=== PATIENT | female | born 1980 | race Caucasian/White ===

== ENCOUNTER 2016-09-26 16:05 | Inpatient (IN) | payer OTHER ==
[2016-09-26 16:29] VITALS: BMI 29.5
--- NOTE | 2016-09-26 18:31 | HP ---
CIWA Score - CIWA Score Nausea/Vomitin-Mild Nausea/No Vomiting Muscle Tremors: 3 Anxiety: 4-Mod. Anxious/Guarded Agitation: 4-Moderately Restless Paroxysmal Sweats: 1-Minimal Palms Moist Orientation: 3-Disoriented Date>2 days Tacttile Disturbances: 0-None Auditory Disturbances: 0-None Visual Disturbances: 0-None Headache: 0-None Present CIWA-Ar Total Score: 16 Admission ROS S - HPI Chief Complaint: WITHDRAWAL SX Allergies/Adverse Reactions: Allergies Allergy/AdvReac Type Severity Reaction Status Date / Time No Known Allergies Allergy Verified 09/26/16 17:48 History of Present Illness: 36 YEARS OLD FEMALE WITH LONG HISTORY OF XANAX NICOTINE DEPENDENCE, HAS CONSTIPATION, ANEMIA, ASTHMA SEIZURE AND DEPRESSION IS ADMITTED TO DETOX Exam Limitations: No Limitations - Ebola screening Have you traveled outside of the country in the last 21 days: No (N) Have you had contact with anyone from an Ebola affected area: No Have you been sick,other than usual withdrawal symptoms: No Do you have a fever: No - Review of Systems Constitutional: Chills, Changes in sleep, Weight Stable EENT: reports: No Symptoms Reported Respiratory: reports: No Symptoms reported Cardiac: reports: No Symptoms Reported GI: reports: Nausea, Poor Fluid Intake, Indigestion, Abdominal cramping : reports: No Symptoms Reported Musculoskeletal: reports: Back Pain, Joint Pain, Muscle Pain Integumentary: reports: No Symptoms Reported Neuro: reports: Seizure (FIRST SEIZURE 2010 NO TREATMENT), Tremors Endocrine: reports: No Symptoms Reported Hematology: reports: No Symptoms Reported Psychiatric: reports: Judgement Intact, Anxious, Depressed Other Systems: Reviewed and Negative Patient History - Patient Medical History Hx Anemia: No Hx Asthma: Yes (Pt is on MDI) Hx Chronic Obstructive Pulmonary Disease (COPD): No Hx Cancer: No Hx Cardiac Disorders: No Hx Congestive Heart Failure: No Hx Hypertension: Yes Hx Hypercholesterolemia: Yes (by history last dose 3 years ago) Hx Pacemaker: No HX Cerebrovascular Accident: No Hx Seizures: Yes (xanax related last in 2010.) Hx Dementia: No Hx Diabetes: No Hx Gastrointestinal Disorders: No Hx Liver Disease: No Hx Genitourinary Disorders: No Hx Sexually Transmitted Disorders: No Hx Renal Disease (ESRD): No Hx Thyroid Disease: No Hx Human Immunodeficiency Virus (HIV): No Hx Hepatitis C: No Hx Depression: Yes Hx Suicide Attempt: Yes (OVER DOSE PILLS "LONG TIME AGO") Hx Bipolar Disorder: No Hx Schizophrenia: No - Patient Surgical History Past Surgical History: Yes Hx Neurologic Surgery: No Hx Cataract Extraction: No Hx Cardiac Surgery: No Hx Lung Surgery: No Hx Breast Surgery: Yes (2012 right breast abscess) Hx Breast Biopsy: No Hx Abdominal Surgery: No Hx Appendectomy: No Hx Cholecystectomy: No Hx Genitourinary Surgery: No Hx Section: Yes (2003) Hx Orthopedic Surgery: No Hx Hysterectomy: No Anesthesia Reaction: No - PPD History Previous Implant?: Yes Documented Results: Negative w/proof Implanted On Prior R Admission?: Yes Date: 04/18/16 Results: 0 mm PPD to be Administered?: No - Reproductive History Patient is a Female of Child Bearing Age (11 -55 yrs old): Yes Last Menstrual Period: 08/08/16 Patient : No - Smoking Cessation Smoking history: Current every day smoker Have you smoked in the past 12 months: Yes Aproximately how many cigarettes per day: 10 Cigars Per Day: 0 Hx Chewing Tobacco Use: No Initiated information on smoking cessation: Yes 'Breaking Loose' booklet given: 09/26/16 - Substance & Tx. History Hx Alcohol Use: No Hx Substance Use: Yes Substance Use Type: Cocaine, Tranquilizers Hx Substance Use Treatment: Yes - Substances Abused Cocaine Route: Smoking Frequency: Daily Amount used: $50 Age of first use: 21 Date of Last Use: 09/25/16 XANAX OR KLONOPIN Route: Oral Frequency: Daily Amount used: 4-6MG Age of first use: 31 Date of Last Use: 09/26/16 Family Disease History - Family Disease History Family Disease History: Diabetes: Grandparent (HTN), Heart Disease: Grandparent , Father (OH X 2,ALCOHOL), Other: Father Admission Physical Exam BHS - Vital Signs Vital Signs: Vital Signs - 24 hr 09/26/16 16:27 Temperature 95.4 F L Pulse Rate 51 L Respiratory 18 Rate Blood Pressure 127/73 - Physical General Appearance: Yes: Appropriately Dressed, Mild Distress, Tremorous, Irritable, Sweating, Anxious HEENTM: Yes: Hearing grossly Normal, Normal ENT Inspection, Normocephalic, Normal Voice Respiratory: Yes: Chest Non-Tender, No Respiratory Distress, No Accessory Muscle Use, Wheezing, Expiration Neck: Yes: Supple, Trachea in good position Breast: Yes: Breasts Symetrical Cardiology: Yes: Regular Rhythm, Regular Rate, S1, S2 Genitourinary: Yes: Within Normal Limits Back: Yes: Normal Inspection Musculoskeletal: Yes: full range of Motion, Gait Steady, Back pain Extremities: Yes: Normal Range of Motion, Non-Tender, Tremors Neurological: Yes: Alert, Motor Strength 5/5, Normal Response, Depressed Affect Integumentary: Yes: Warm Lymphatic: Yes: Within Normal Limits - Diagnostic (1) Anemia Current Visit: Yes Status: Chronic Qualifiers: Anemia type: iron deficiency Iron deficiency anemia type: inadequate dietary iron intake Qualified Code(s): D50.8 - Other iron deficiency anemias Comment: lab pending (2) Asthma Current Visit: Yes Status: Acute Qualifiers: Asthma severity: mild intermittent Asthma complication type: uncomplicated Qualified Code(s): J45.20 - Mild intermittent asthma, uncomplicated (3) Methadone maintenance therapy patient Current Visit: Yes Status: Chronic Comment: 120 mg po daily verification pending (4) Sedative, hypnotic or anxiolytic dependence with withdrawal, uncomplicated Current Visit: Yes Status: Acute (5) Nicotine dependence Current Visit: Yes Status: Acute Qualifiers: Nicotine product type: cigarettes Substance use status: uncomplicated Qualified Code(s): F17.210 - Nicotine dependence, cigarettes, uncomplicated (6) Constipation by delayed colonic transit Current Visit: Yes Status: Acute Comment: COLACE + LACTULOSE (7) Depression with anxiety Current Visit: Yes Status: Suspected Comment: PAXIL Cleared for Admission [facility] - Detox or Rehab [facility] Level of Care: Medically Managed Detox Regimen/Protocol: Valium [facility] Breath Alcohol Content Breath Alcohol Content: 0 Urine Pregancy Test - Result Urine Test Results: Negative- NO Line Present Urine Drug Screen - Results Drug Screen Negative: No Urine Drug Screen Results: JOHNATHAN-Cocaine, BZO-Benzodiazepines, MTD-Methadone
[2016-09-26] MEDS ORDERED: diazePAM 5 MG TABLET PO ONE (18:42)
[2016-09-26] MEDS ORDERED: MAG HYDROX/AL HYDROX/SIMETH 30 ML UNIT-DOSE CUP PO PRN (18:42)
[2016-09-26] MEDS ORDERED: IBUPROFEN 400 MG TABLET (FP) PO PRN (18:42)
[2016-09-26] MEDS ORDERED: LOPERAMIDE HCL 2 MG CAPSULE PO PRN (18:42)
[2016-09-26] MEDS ORDERED: MAGNESIUM HYDROX 2400MG/30ML ORAL SUSPENSION 30 ML CUP PO PRN (18:42)
[2016-09-26] MEDS ORDERED: ACETAMINOPHEN 325 MG TABLET (FP) PO PRN (18:42)
[2016-09-26] MEDS ORDERED: P-EPHED 60MG/TRIPROLIDI 2.5MG TABLET PO PRN (18:42)
[2016-09-26] MEDS ORDERED: MAGNESIUM CITRATE 300 ML BOTTLE PO PRN (18:42)
[2016-09-26] MEDS ORDERED: guaiFENesin/D-METHORPHAN HB 10 ML UNIT-DOSE CUPS PO PRN (18:42)
[2016-09-26] MEDS ORDERED: MENTHOL/PHENOL 1 EACH UD MM PRN (18:42)
[2016-09-26] MEDS ORDERED: ALBUTEROL SO4 6.7 GM HFA INHALER IH PRN (18:46)
[2016-09-26] MEDS ORDERED: ALBUTEROL SO4 2.5/IPRATROPIUM 0.5 INH SOL 3 ML VIAL.NEB. NEB PRN (18:46)
[2016-09-26] MEDS ORDERED: diphenhydrAMINE HCL 50 MG CAPSULE PO PRN (22:00)
[2016-09-26] MEDS: diazePAM 5 MG TABLET PO SCH (22:39)
[2016-09-26] MEDS: CYCLOBENZAPRINE HCL 10 MG TABLET (FP) PO PRN (22:39)
[2016-09-26] MEDS: THIAMINE HCL 100 MG TABLET (FP) PO SCH (22:39)
[2016-09-26] MEDS: cloNIDine HCL 0.1 MG TABLET PO PRN (22:40)
[2016-09-26 23:11] LABS: URINE APPEARANCE SLCLOUDY; URINE BILIRUBIN NEGATIVE (NEGATIVE); URINE BLOOD NEGATIVE (NEGATIVE); URINE COLOR LTYELLOW; URINE GLUCOSE (UA) NEGATIVE (NEGATIVE); URINE KETONE NEGATIVE (NEGATIVE); URINE LEUK ESTERASE NEGATIVE (NEGATIVE); URINE NITRITE NEGATIVE (NEGATIVE); URINE PROTEIN NEGATIVE (NEGATIVE); URINE UROBILINOGEN NEGATIVE E.U./dl (0.2-1.0)
[2016-09-27] MEDS: diazePAM 5 MG TABLET PO SCH ×3 (05:30→22:18)
--- NOTE | 2016-09-27 09:27 | CONSULT ---
[facility] Psychiatric Consult - Data Date of interview: 09/27/16 Admission source: [facility] Identifying data: Readmission to [facility] for this 36 y/o female seeking detox treatment on for cocaine (crack) and benzodiazepine dependence.Patient is single,a mother of one,domiciled,unemployed and supported on Public Assistance. Substance Abuse History: - Smoking Cessation. Smoking history: Current every day smoker. Have you smoked in the past 12 months: Yes. Aproximately how many cigarettes per day: 10. Cigars Per Day: 0. Hx Chewing Tobacco Use: No. Initiated information on smoking cessation: Yes. 'Breaking Loose' booklet given : 09/26/16. - Substance & Tx. History. Hx Alcohol Use: No. Hx Substance Use: Yes. Substance Use Type: Cocaine, Tranquilizers. Hx Substance Use Treatment: Yes. - Substances Abused. Cocaine. Route: Smoking. Frequency: Daily. Amount used: $50. Age of first use: 21. Date of Last Use: 09/25/16. XANAX OR KLONOPIN. Route: Oral. Frequency: Daily. Amount used: 4-6MG. Age of first use: 31. Date of Last Use: 09/26/16 Medical History: Significant for a history of anemia,bronchial asthma, hypertension,hypercholesterolemia,GERD and withdrawal-related seizures. Psychiatric History: Onset of psychiatric issues :age [age] (behavioral problems ).Initial diagnosis was ADHD.Placed on psychostimulants but no compliant over the years.Patient denies history of psychiatric hospitalizations.Further diagnosed with MDD,Anxiety Disorder and Bipolar Disorder.MS Herndon reports multiple trials of various antidepressants and mood stabilizers (lithium, depakote,seroquel).Currently,Ms Herndon gets outpatient psychiatric services at the [facility] in [facility].Maintenance medications :paxil 40 mg /day + gabapentin 800 mg po tid + zyprexa 7.5 mg/hs.No mention of strattera ( not found in search of Pharmacy Claims).She indicates that she last took her medications just prior to this [facility] visit.Noted report of one suicide attempt, five years ago,via overdose with medications.Mild insomnia is endorsed by patient. Physical/Sexual Abuse/Trauma History: Patient denies. Additional Comment: Urine Drug Screen Results: JOHNATHAN-Cocaine, BZO-Benzodiazepines , MTD-Methadone.Noted. Mental Status Exam - Mental Status Exam Alert and Oriented to: Time, Place, Person Cognitive Function: Good Patient Appearance: Unkempt, Disheveled Mood: Nervous, Withdrawn Affect: Mood Congruent Patient Behavior: Sedated, Fatigued, Appropriate, Cooperative Speech Pattern: Clear Voice Loudness: Normal Thought Process: Goal Oriented Thought Disorder: Not Present Hallucinations: Denies Suicidal Ideation: Denies Homicidal Ideation: Denies Insight/Judgement: Poor Sleep: Poorly, Difficulty falling asleep Appetite: Good Muscle strength/Tone: Normal Gait/Station: Normal Psychiatric Findings - Problem List ([place] 1, 2,3) (1) Sedative, hypnotic or anxiolytic dependence with withdrawal, uncomplicated Current Visit: Yes Status: Acute (2) Cocaine dependence, uncomplicated Current Visit: Yes Status: Acute (3) Opioid dependence on agonist therapy Current Visit: Yes Status: Acute (4) Nicotine dependence Current Visit: Yes Status: Acute Qualifiers: Nicotine product type: cigarettes Substance use status: uncomplicated Qualified Code(s): F17.210 - Nicotine dependence, cigarettes, uncomplicated (5) Substance induced mood disorder Current Visit: Yes Status: Suspected (6) Bipolar disorder Current Visit: Yes Status: Chronic Comment: By history. (7) ADHD (attention deficit hyperactivity disorder) Current Visit: No Status: Acute Comment: By history. (8) Anemia Current Visit: Yes Status: Chronic Qualifiers: Anemia type: iron deficiency Iron deficiency anemia type: inadequate dietary iron intake Qualified Code(s): D50.8 - Other iron deficiency anemias Comment: lab pending (9) Asthma Current Visit: Yes Status: Chronic Qualifiers: Asthma severity: mild intermittent Asthma complication type: uncomplicated Qualified Code(s): J45.20 - Mild intermittent asthma, uncomplicated (10) Chronic lower back pain Current Visit: Yes Status: Chronic Qualifiers: Back pain laterality: unspecified Sciatica presence: without sciatica Qualified Code(s): M54.5 - Low back pain; G89.29 - Other chronic pain Comment: neurontin (11) GERD (gastroesophageal reflux disease) Current Visit: Yes Status: Chronic Qualifiers: Esophagitis presence: without esophagitis Qualified Code(s): K21.9 - Gastro-esophageal reflux disease without esophagitis (12) Insomnia Current Visit: Yes Status: Chronic - Initial Treatment Plan Initial Treatment Plan: Psychoeducation.Detoxification.Medications :paxil 40 mg po daily + gabapentin 800 mg po tid + zyprexa 7.5 mg po hs.Side effects/ benefits discussed with patient.Previous records are reviewed.Medications are verified/confirmed via review of pharmacy claims (filled scripts of 09/05/[address] Snowden @ [facility]).Insomnia is addressed with benadryl prn at bedtime.Observation.Patient agrees with this careplan.
[2016-09-27] MEDS ORDERED: METHADONE HCL 40 MG DISPERSABLE TABLET PO ONE (09:45)
[2016-09-27] MEDS ORDERED: ERGOCALCIFEROL (VITAMIN D2) 50,000 UNIT CAPSULE (FP) PO SCH (10:00)
[2016-09-27 10:32] LABS: MCH 32.2 pg (25.7-33.7); MCHC 35.6 g/dl (32.0-36.0); MEAN CELL VOLUME 90.3 fl (80-96); MEAN PLT VOLUME 10.1 fl (7.5-11.1); PLATELET COUNT 194 K/MM3 (134-434); RDW 13.3 % (11.6-15.6); WHITE BLOOD COUNT 8.9 K/mm3 (4.0-10.0)
[2016-09-27 10:55] LABS: ALBUMIN 3.2 g/dl (3.4-5.0); ALK PHOS 115 U/L (45-117); ANION GAP 7 (8-16); BILIRUBIN,TOTAL 0.6 mg/dL (0.2-1.0); CALCIUM 7.9 mg/dL (8.5-10.1); CO2 25 mmol/L (21-32); CREATININE 0.7 mg/dL (0.55-1.02); GLUCOSE,RANDOM 132 mg/dL (74-106)
[2016-09-27 11:20] LABS: SGOT/AST 22 U/L (15-37); TOT PROT 6.4 g/dl (6.4-8.2)
[2016-09-27] MEDS: NICOTINE 14 MG/24 HOURS TOPICAL PATCH TD SCH (11:25)
[2016-09-27] MEDS: PRENATAL VITAMINS W/ FOLIC ACID TABLET (FP) PO SCH (11:25)
[2016-09-27] MEDS: CYCLOBENZAPRINE HCL 10 MG TABLET (FP) PO PRN ×2 (11:27→20:34)
[2016-09-27] MEDS: diazePAM 5 MG TABLET PO PRN ×2 (11:28→19:30)
[2016-09-27] MEDS: cloNIDine HCL 0.1 MG TABLET PO PRN ×2 (11:28→20:34)
[2016-09-27] MEDS: PARoxetine HCL 20 MG TABLET (FP) PO SCH (12:12)
[2016-09-27] MEDS: GABAPENTIN 400 MG CAPSULE (FP) PO SCH ×2 (13:41→22:18)
[2016-09-27] MEDS: DOCUSATE SODIUM 100 MG CAPSULE (FP) PO PRN (13:42)
--- NOTE | 2016-09-27 13:54 | PN ---
S CIWA - CIWA Score Nausea/Vomitin Muscle Tremors: 3 Anxiety: 3 Agitation: 2 Paroxysmal Sweats: 1-Minimal Palms Moist Orientation: 0-Oriented Tacttile Disturbances: 1-Very Mild Itch/Numbness Auditory Disturbances: 1-Very Mild Visual Disturbances: 1-Very Mild Sensitivity Headache: 2-Mild CIWA-Ar Total Score: 17 BHS Progress Note (SOAP) Subjective: alert,irritable,anxious,interrupted sleep,tremor,pain in the body Objective: 09/27/16 13:51 Vital Signs Temperature 97.7 F 09/27/16 10:00 Pulse Rate 66 09/27/16 10:00 Respiratory Rate 18 09/27/16 10:00 Blood Pressure 104/58 09/27/16 10:00 O2 Sat by Pulse Oximetry (%) ekg sinus bradycardia 59/min no chest pain,no sob,no dizziness Laboratory Last Values WBC 8.9 K/mm3 (4.0-10.0) D 09/27/16 07:50 RBC 4.05 M/mm3 (3.60-5.2) 09/27/16 07:50 Hgb 13.0 GM/dL (10.7-15.3) D 09/27/16 07:50 Hct 36.6 % (32.4-45.2) 09/27/16 07:50 MCV 90.3 fl (80-96) 09/27/16 07:50 MCHC 35.6 g/dl (32.0-36.0) 09/27/16 07:50 RDW 13.3 % (11.6-15.6) D 09/27/16 07:50 Plt Count 194 K/MM3 (134-434) 09/27/16 07:50 MPV 10.1 fl (7.5-11.1) 09/27/16 07:50 Sodium 140 mmol/L (136-145) 09/27/16 07:50 Potassium 4.2 mmol/L (3.5-5.1) 09/27/16 07:50 Chloride 108 mmol/L (98-107) H 09/27/16 07:50 Carbon Dioxide 25 mmol/L (21-32) 09/27/16 07:50 Anion Gap 7 (8-16) L 09/27/16 07:50 BUN 5 mg/dL (7-18) L D 09/27/16 07:50 Creatinine 0.7 mg/dL (0.55-1.02) 09/27/16 07:50 Creat Clearance w eGFR > 60 (>60) 09/27/16 07:50 Random Glucose 132 mg/dL (74-106) H D 09/27/16 07:50 Calcium 7.9 mg/dL (8.5-10.1) L 09/27/16 07:50 Total Bilirubin 0.6 mg/dL (0.2-1.0) D 09/27/16 07:50 AST 22 U/L (15-37) 09/27/16 07:50 ALT Y 09/27/16 07:50 Alkaline Phosphatase 115 U/L (45-117) D 09/27/16 07:50 Total Protein 6.4 g/dl (6.4-8.2) 09/27/16 07:50 Albumin 3.2 g/dl (3.4-5.0) L 09/27/16 07:50 Urine Color Ltyellow 09/26/16 19:54 Urine Appearance Slcloudy 09/26/16 19:54 Urine pH 7.0 (5.0-8.0) 09/26/16 19:54 Ur Specific [place] 1.006 (1.001-1.035) 09/26/16 19:54 Urine Protein Negative (NEGATIVE) 09/26/16 19:54 Urine Glucose (UA) Negative (NEGATIVE) 09/26/16 19:54 Urine Ketones Negative (NEGATIVE) 09/26/16 19:54 Urine Blood Negative (NEGATIVE) 09/26/16 19:54 Urine Nitrite Negative (NEGATIVE) 09/26/16 19:54 Urine Bilirubin Negative (NEGATIVE) 09/26/16 19:54 Urine Urobilinogen Negative E.U./dl (0.2-1.0) 09/26/16 19:54 Ur Leukocyte Esterase Negative (NEGATIVE) 09/26/16 19:54 RPR Titer Nonreactive (NONREACTIVE) 09/27/16 07:50 Assessment: 09/27/16 13:53 withdrawal symptom Plan: continue detox,repeat cmp in am,initial glucose is 132
[2016-09-27] MEDS: LACTULOSE 20 GM/30 ML UDC (FOR ORAL USE ONLY) PO PRN (13:59)
[2016-09-27] MEDS: NICOTINE POLACRILEX 2 MG GUM BUC PRN ×2 (19:24→22:19)
[2016-09-27] MEDS: OLANZapine 7.5 MG TABLET PO SCH (22:18)
[2016-09-27] MEDS: THIAMINE HCL 100 MG TABLET (FP) PO SCH (22:18)
[2016-09-28] MEDS: GABAPENTIN 400 MG CAPSULE (FP) PO SCH ×3 (05:54→22:30)
[2016-09-28] MEDS: METHADONE HCL 40 MG DISPERSABLE TABLET PO SCH (05:56)
[2016-09-28] MEDS: cloNIDine HCL 0.1 MG TABLET PO PRN ×2 (06:00→20:41)
[2016-09-28] MEDS: CYCLOBENZAPRINE HCL 10 MG TABLET (FP) PO PRN ×2 (06:00→20:41)
[2016-09-28] MEDS: diazePAM 5 MG TABLET PO PRN ×2 (07:27→16:21)
[2016-09-28] MEDS: NICOTINE POLACRILEX 2 MG GUM BUC PRN (07:34)
[2016-09-28] MEDS: LACTULOSE 20 GM/30 ML UDC (FOR ORAL USE ONLY) PO PRN (10:56)
[2016-09-28] MEDS: NICOTINE 14 MG/24 HOURS TOPICAL PATCH TD SCH (10:57)
[2016-09-28] MEDS: PARoxetine HCL 20 MG TABLET (FP) PO SCH (10:57)
[2016-09-28] MEDS: PRENATAL VITAMINS W/ FOLIC ACID TABLET (FP) PO SCH (10:57)
[2016-09-28] MEDS: diazePAM 5 MG TABLET PO SCH ×2 (10:57→22:31)
[2016-09-28] MEDS: DOCUSATE SODIUM 100 MG CAPSULE (FP) PO PRN (10:57)
--- NOTE | 2016-09-28 11:38 | PN ---
[facility] CIWA - CIWA Score Nausea/Vomitin-No Nausea/No Vomiting Muscle Tremors: 3 Anxiety: 4-Mod. Anxious/Guarded Agitation: 4-Moderately Restless Paroxysmal Sweats: 3 Orientation: 0-Oriented Tacttile Disturbances: 0-None Auditory Disturbances: 0-None Visual Disturbances: 0-None Headache: 0-None Present CIWA-Ar Total Score: 14 BHS Progress Note (SOAP) Subjective: ANXIETY,TREMORS,RESTLESS,INTERRUPTED SLEEP,SWEATING. Objective: 09/28/16 11:37 Vital Signs - 8 hr 09/28/16 09/28/16 06:00 10:00 Temperature 98.2 F 96.9 F L Pulse Rate 65 67 Respiratory 18 16 Rate Blood Pressure 117/62 106/66 Laboratory Last Values WBC 8.9 K/mm3 (4.0-10.0) D 09/27/16 07:50 RBC 4.05 M/mm3 (3.60-5.2) 09/27/16 07:50 Hgb 13.0 GM/dL (10.7-15.3) D 09/27/16 07:50 Hct 36.6 % (32.4-45.2) 09/27/16 07:50 MCV 90.3 fl (80-96) 09/27/16 07:50 MCHC 35.6 g/dl (32.0-36.0) 09/27/16 07:50 RDW 13.3 % (11.6-15.6) D 09/27/16 07:50 Plt Count 194 K/MM3 (134-434) 09/27/16 07:50 MPV 10.1 fl (7.5-11.1) 09/27/16 07:50 Sodium 140 mmol/L (136-145) 09/27/16 07:50 Potassium 4.2 mmol/L (3.5-5.1) 09/27/16 07:50 Chloride 108 mmol/L (98-107) H 09/27/16 07:50 Carbon Dioxide 25 mmol/L (21-32) 09/27/16 07:50 Anion Gap 7 (8-16) L 09/27/16 07:50 BUN 5 mg/dL (7-18) L D 09/27/16 07:50 Creatinine 0.7 mg/dL (0.55-1.02) 09/27/16 07:50 Creat Clearance w eGFR > 60 (>60) 09/27/16 07:50 Random Glucose 132 mg/dL (74-106) H D 09/27/16 07:50 Calcium 7.9 mg/dL (8.5-10.1) L 09/27/16 07:50 Total Bilirubin 0.6 mg/dL (0.2-1.0) D 09/27/16 07:50 AST 22 U/L (15-37) 09/27/16 07:50 ALT Y 09/27/16 07:50 Alkaline Phosphatase 115 U/L (45-117) D 09/27/16 07:50 Total Protein 6.4 g/dl (6.4-8.2) 09/27/16 07:50 Albumin 3.2 g/dl (3.4-5.0) L 09/27/16 07:50 Urine Color Ltyellow 09/26/16 19:54 Urine Appearance Slcloudy 09/26/16 19:54 Urine pH 7.0 (5.0-8.0) 09/26/16 19:54 Ur Specific [place] 1.006 (1.001-1.035) 09/26/16 19:54 Urine Protein Negative (NEGATIVE) 09/26/16 19:54 Urine Glucose (UA) Negative (NEGATIVE) 09/26/16 19:54 Urine Ketones Negative (NEGATIVE) 09/26/16 19:54 Urine Blood Negative (NEGATIVE) 09/26/16 19:54 Urine Nitrite Negative (NEGATIVE) 09/26/16 19:54 Urine Bilirubin Negative (NEGATIVE) 09/26/16 19:54 Urine Urobilinogen Negative E.U./dl (0.2-1.0) 09/26/16 19:54 Ur Leukocyte Esterase Negative (NEGATIVE) 09/26/16 19:54 RPR Titer Nonreactive (NONREACTIVE) 09/27/16 07:50 LABS NOTED Assessment: 09/28/16 11:38 WITHDRAWAL SX. Plan: CONTINUE DETOX
[2016-09-28] MEDS: THIAMINE HCL 100 MG TABLET (FP) PO SCH (22:31)
[2016-09-28] MEDS: OLANZapine 7.5 MG TABLET PO SCH (22:31)
[2016-09-29] MEDS: diazePAM 5 MG TABLET PO PRN ×3 (02:34→12:52)
[2016-09-29] MEDS: GABAPENTIN 400 MG CAPSULE (FP) PO SCH ×3 (05:50→22:27)
[2016-09-29] MEDS: METHADONE HCL 40 MG DISPERSABLE TABLET PO SCH (05:51)
[2016-09-29] MEDS: cloNIDine HCL 0.1 MG TABLET PO PRN ×3 (05:55→22:32)
[2016-09-29] MEDS: CYCLOBENZAPRINE HCL 10 MG TABLET (FP) PO PRN ×3 (06:55→22:27)
--- NOTE | 2016-09-29 11:42 | PN ---
S Progress Note (SOAP) Subjective: ALERT,IRRITABLE,ANXIOUS,INTERRUPTED SLEEP, Objective: 09/29/16 11:41 Vital Signs Temperature 98.1 F 09/29/16 10:24 Pulse Rate 75 09/29/16 10:24 Respiratory Rate 20 09/29/16 10:24 Blood Pressure 108/65 09/29/16 10:24 O2 Sat by Pulse Oximetry (%) Assessment: 09/29/16 11:41 WITHDRAWAL SYMPTOM Plan: CONTINUE DETOX,DISCHARGE IN AM
[2016-09-29] MEDS: NICOTINE 14 MG/24 HOURS TOPICAL PATCH TD SCH (12:16)
[2016-09-29] MEDS: PARoxetine HCL 20 MG TABLET (FP) PO SCH (12:16)
[2016-09-29] MEDS: PRENATAL VITAMINS W/ FOLIC ACID TABLET (FP) PO SCH (12:16)
[2016-09-29] MEDS: diazePAM 5 MG TABLET PO SCH ×2 (12:17→22:27)
[2016-09-29] MEDS ORDERED: ALBUTEROL SO4 6.7 GM HFA INHALER IH ONE (20:04)
[2016-09-29] MEDS: DOCUSATE SODIUM 100 MG CAPSULE (FP) PO PRN (22:26)
[2016-09-29] MEDS: THIAMINE HCL 100 MG TABLET (FP) PO SCH (22:27)
[2016-09-29] MEDS: OLANZapine 7.5 MG TABLET PO SCH (22:28)
[2016-09-30] MEDS: METHADONE HCL 40 MG DISPERSABLE TABLET PO SCH (07:36)
[2016-09-30] MEDS: GABAPENTIN 400 MG CAPSULE (FP) PO SCH (07:38)
[2016-09-30] MEDS: NICOTINE POLACRILEX 2 MG GUM BUC PRN (08:54)
--- NOTE | 2016-09-30 08:59 | DS ---
[facility] Detox Discharge Summary Admission Date: 09/26/16 Discharge Date: 09/30/16 - History Present History: Cocaine Dependence, Opioid Dependence, Sedative Dependence, MMTP - Physical Exam Results Vital Signs: Vital Signs Temperature 97.7 F 09/30/16 06:56 Pulse Rate 72 09/30/16 06:56 Respiratory Rate 18 09/30/16 06:56 Blood Pressure 112/76 09/30/16 06:56 O2 Sat by Pulse Oximetry (%) - Treatment Hospital Course: Detox Protocol Followed, Detoxed Safely, Responded well, Discharged Condition Good, Rehab Referral Accepted - Medication Discharge Medications: Ambulatory Orders Albuterol Sulfate Inhaler - [Ventolin HFA Inhaler -] 2 puff IH Q4H PRN #1 inhaler 07/19/16 Ferrous Sulfate [Feosol] 325 mg PO BID 07/19/16 Gabapentin [Neurontin -] 800 mg PO TID #120 capsule 08/07/16 Olanzapine [Zyprexa -] 7.5 mg PO HS #30 tablet 08/07/16 Paroxetine HCl [Paxil -] 40 mg PO DAILY 09/26/16 - Diagnosis (1) Cocaine dependence, uncomplicated Current Visit: Yes Status: Chronic (2) Constipation by delayed colonic transit Current Visit: Yes Status: Chronic (3) Nicotine dependence Current Visit: Yes Status: Chronic Qualifiers: Nicotine product type: cigarettes Substance use status: uncomplicated Qualified Code(s): F17.210 - Nicotine dependence, cigarettes, uncomplicated (4) Opioid dependence on agonist therapy Current Visit: Yes Status: Chronic (5) Sedative, hypnotic or anxiolytic dependence with withdrawal, uncomplicated Current Visit: Yes Status: Chronic (6) Anemia Current Visit: Yes Status: Chronic Qualifiers: Anemia type: iron deficiency Iron deficiency anemia type: inadequate dietary iron intake Qualified Code(s): D50.8 - Other iron deficiency anemias (7) Asthma Current Visit: Yes Status: Chronic Qualifiers: Asthma severity: mild intermittent Asthma complication type: uncomplicated Qualified Code(s): J45.20 - Mild intermittent asthma, uncomplicated (8) Bipolar disorder Current Visit: Yes Status: Chronic (9) Chronic lower back pain Current Visit: Yes Status: Chronic Qualifiers: Back pain laterality: unspecified Sciatica presence: without sciatica Qualified Code(s): M54.5 - Low back pain; G89.29 - Other chronic pain (10) GERD (gastroesophageal reflux disease) Current Visit: Yes Status: Chronic Qualifiers: Esophagitis presence: without esophagitis Qualified Code(s): K21.9 - Gastro-esophageal reflux disease without esophagitis (11) Insomnia Current Visit: Yes Status: Chronic (12) Methadone maintenance therapy patient Current Visit: Yes Status: Chronic (13) Depression with anxiety Current Visit: Yes Status: Suspected (14) Substance induced mood disorder Current Visit: Yes Status: Suspected (15) ADHD (attention deficit hyperactivity disorder) Current Visit: No Status: Acute (16) Alcohol dependence Current Visit: Yes Status: Chronic Qualifiers: Substance use status: uncomplicated Qualified Code(s): F10.20 - Alcohol dependence, uncomplicated (17) Anxiolytic dependence Current Visit: No Status: Chronic (18) Bipolar 1 disorder Current Visit: No Status: Chronic (19) Depression (emotion) Current Visit: No Status: Chronic Qualifiers: Depression Type: dysthymia Qualified Code(s): F34.1 - Dysthymic disorder - AMA Did Patient Leave Against Medical Advice: No
[2016-09-30] MEDS ORDERED: diazePAM 5 MG TABLET PO SCH (10:00)
[2016-09-30] MEDS: cloNIDine HCL 0.1 MG TABLET PO PRN (10:08)
[2016-09-30] MEDS: DOCUSATE SODIUM 100 MG CAPSULE (FP) PO PRN (10:08)
[2016-09-30] MEDS: NICOTINE 14 MG/24 HOURS TOPICAL PATCH TD SCH (10:08)
[2016-09-30] MEDS: PARoxetine HCL 20 MG TABLET (FP) PO SCH (10:08)
[2016-09-30] MEDS: PRENATAL VITAMINS W/ FOLIC ACID TABLET (FP) PO SCH (10:08)
[2016-09-30] MEDS: CYCLOBENZAPRINE HCL 10 MG TABLET (FP) PO PRN (10:08)
[2016-09-30 10:38] VITALS: BP 101/60; PULSE 88; TEMP 97.2
== END 2016-09-30 10:16 | disposition home or self-care (01) | DRG 773 ==
LOC: YASAS 16:05 → Y6N 19:18
PROVIDERS: ADMIT Internal Medicine Addiction Medicine; ATTEND Internal Medicine Addiction Medicine
PROC: HZ2ZZZZ Detoxification Services for Substance Abuse Treatment (ICD-10-PCS; principal; 2016-09-26)
DX: F13.230 Sedative, hypnotic or anxiolytic dependence with withdrawal, uncomplicated (principal); F11.23 Opioid dependence with withdrawal; F14.20 Cocaine dependence, uncomplicated; F17.210 Nicotine dependence, cigarettes, uncomplicated; F19.24 Other psychoactive substance dependence with psychoactive substance-induced mood disorder; F34.1 Dysthymic disorder; F90.9 Attention-deficit hyperactivity disorder, unspecified type; F31.9 Bipolar disorder, unspecified; F41.8 Other specified anxiety disorders; K59.01 Slow transit constipation; D50.8 Other iron deficiency anemias; J45.20 Mild intermittent asthma, uncomplicated; M54.5 Low back pain; G89.29 Other chronic pain; K21.9 Gastro-esophageal reflux disease without esophagitis; G47.00 Insomnia, unspecified; R00.1 Bradycardia, unspecified; I10 Essential (primary) hypertension; Z86.69 Personal history of other diseases of the nervous system and sense organs; Z86.79 Personal history of other diseases of the circulatory system; Z91.5 Personal history of self-harm
CPT/HCPCS: 36415; 80053; 81003; 85027; 86593; 93005; 93010

== ENCOUNTER 2022-05-11 12:33 | Inpatient (IN) | payer OTHER ==
[2022-05-11 14:42] VITALS: BMI 20.9
[2022-05-11] MEDS ORDERED: MAG HYDROX/AL HYDROX/SIMETH 30 ML UNIT-DOSE CUP PO PRN (16:32)
[2022-05-11] MEDS ORDERED: BENZOCAINE/MENTHOL (CHLORASEPTIC ) LOZENGE MM PRN (16:32)
[2022-05-11] MEDS ORDERED: ONDANSETRON *ODT* 4 MG TABLET SL PRN (16:32)
[2022-05-11] MEDS ORDERED: NICOTINE 10 MG CARTRIDGE (INHALER) IH PRN (16:32)
[2022-05-11] MEDS ORDERED: ACETAMINOPHEN 325 MG TABLET (FP) PO PRN ×2 (16:32)
[2022-05-11] MEDS ORDERED: DICYCLOMINE HCL 10 MG CAPSULE PO PRN (16:32)
[2022-05-11] MEDS ORDERED: IBUPROFEN 600 MG TABLET (FP) PO PRN (16:32)
[2022-05-11] MEDS ORDERED: MAGNESIUM CITRATE 300 ML BOTTLE PO PRN (16:32)
[2022-05-11] MEDS ORDERED: NALOXONE HCL (KLOXXADO) 8 MG SPRAY NS PRN (16:32)
[2022-05-11] MEDS ORDERED: METHOCARBAMOL 500 MG TABLET PO PRN (16:32)
[2022-05-11] MEDS ORDERED: LOPERAMIDE HCL 2 MG CAPSULE PO PRN (16:32)
[2022-05-11] MEDS ORDERED: MAGNESIUM HYDROX 2400MG/30ML ORAL SUSPENSION 30 ML CUP PO PRN (16:32)
[2022-05-11] MEDS ORDERED: BISMUTH SUBSALICYLATE 524 MG/30 ML PO PRN (16:32)
[2022-05-11] MEDS ORDERED: IBUPROFEN 400 MG TABLET (FP) PO PRN (16:32)
[2022-05-11] MEDS ORDERED: ALBUTEROL SO4 HFA INHALER IH PRN (16:43)
[2022-05-11] MEDS: hydrOXYzine PAMOATE 25 MG CAPSULE (FP) PO SCH ×2 (17:52→22:47)
[2022-05-11] MEDS: diazePAM 5 MG TABLET PO PRN (18:49)
[2022-05-11] MEDS: MELATONIN 5 MG TABLETS PO SCH (22:46)
[2022-05-11] MEDS: THIAMINE HCL 100 MG TABLET (FP) PO SCH (22:47)
[2022-05-11] MEDS: diazePAM 5 MG TABLET PO SCH (22:47)
[2022-05-12] MEDS: NICOTINE POLACRILEX 2 MG GUM BUC PRN (03:40)
[2022-05-12] MEDS: hydrOXYzine PAMOATE 25 MG CAPSULE (FP) PO SCH ×5 (05:53→22:31)
[2022-05-12] MEDS: diazePAM 5 MG TABLET PO SCH ×4 (05:53→22:31)
[2022-05-12] MEDS: methaDONE HCL 40 MG DISPERSABLE TABLET PO SCH (07:49)
[2022-05-12] MEDS: PRENATAL VITAMINS W/ FOLIC ACID TABLET (FP) PO SCH (10:18)
[2022-05-12 10:24] LABS: HEMATOCRIT 33.3 % (32.4-45.2); HEMOGLOBIN 10.8 GM/dL (10.7-15.3); MCHC 32.4 g/dl (32.0-36.0); MEAN CELL VOLUME 83.3 fl (80-96); MEAN PLT VOLUME 9.8 fl (7.5-11.1); PLATELET COUNT 273 10^3/uL (134-434); WHITE BLOOD COUNT 5.8 K/mm3 (4.0-10.0)
[2022-05-12 10:52] LABS: CALCIUM 9.5 mg/dL (8.5-10.1)
[2022-05-12 10:53] LABS: BLOOD UREA NITROGEN 7.5 mg/dL (7-18)
[2022-05-12 10:56] LABS: CREATININE 0.6 mg/dL (0.55-1.3)
[2022-05-12 10:57] LABS: BILIRUBIN,TOTAL 0.3 mg/dL (0.2-1); TOT PROT 7.6 g/dl (6.4-8.2)
[2022-05-12] MEDS: diazePAM 5 MG TABLET PO PRN (15:02)
[2022-05-12] MEDS: THIAMINE HCL 100 MG TABLET (FP) PO SCH (22:30)
[2022-05-12] MEDS: MELATONIN 5 MG TABLETS PO SCH (22:30)
[2022-05-13] MEDS: hydrOXYzine PAMOATE 25 MG CAPSULE (FP) PO SCH ×5 (05:37→22:31)
[2022-05-13] MEDS: diazePAM 5 MG TABLET PO SCH ×3 (05:38→22:31)
[2022-05-13] MEDS: methaDONE HCL 40 MG DISPERSABLE TABLET PO SCH (05:38)
[2022-05-13] MEDS: PRENATAL VITAMINS W/ FOLIC ACID TABLET (FP) PO SCH (10:11)
[2022-05-13] MEDS: diazePAM 5 MG TABLET PO PRN ×2 (10:11→17:45)
[2022-05-13] MEDS: GABAPENTIN 300 MG CAPSULE PO SCH ×2 (14:23→22:31)
[2022-05-13] MEDS: NICOTINE POLACRILEX 2 MG GUM BUC PRN (17:46)
[2022-05-13] MEDS: THIAMINE HCL 100 MG TABLET (FP) PO SCH (22:31)
[2022-05-13] MEDS: MELATONIN 5 MG TABLETS PO SCH (22:31)
[2022-05-14] MEDS: hydrOXYzine PAMOATE 25 MG CAPSULE (FP) PO SCH ×5 (06:53→22:17)
[2022-05-14] MEDS: diazePAM 5 MG TABLET PO SCH ×2 (06:53→18:35)
[2022-05-14] MEDS: methaDONE HCL 40 MG DISPERSABLE TABLET PO SCH (06:55)
[2022-05-14] MEDS: GABAPENTIN 300 MG CAPSULE PO SCH ×3 (06:55→22:17)
[2022-05-14] MEDS: diazePAM 5 MG TABLET PO PRN ×2 (10:24→13:36)
[2022-05-14] MEDS: PRENATAL VITAMINS W/ FOLIC ACID TABLET (FP) PO SCH (10:24)
[2022-05-14 12:11] LABS: URINE APPEARANCE CLEAR; URINE BILIRUBIN NEGATIVE (NEGATIVE); URINE COLOR YELLOW; URINE GLUCOSE (UA) NEGATIVE (NEGATIVE); URINE KETONE NEGATIVE (NEGATIVE); URINE LEUK ESTERASE NEGATIVE (NEGATIVE); URINE NITRITE NEGATIVE (NEGATIVE); URINE PROTEIN NEGATIVE (NEGATIVE); URINE UROBILINOGEN 0.2 mg/dL (0.2-1.0)
[2022-05-14] MEDS: NICOTINE POLACRILEX 2 MG GUM BUC PRN ×2 (13:34→18:35)
[2022-05-14] MEDS: MELATONIN 5 MG TABLETS PO SCH (22:17)
[2022-05-14] MEDS: THIAMINE HCL 100 MG TABLET (FP) PO SCH (22:17)
[2022-05-15] MEDS: methaDONE HCL 40 MG DISPERSABLE TABLET PO SCH (05:38)
[2022-05-15] MEDS: GABAPENTIN 300 MG CAPSULE PO SCH (05:39)
[2022-05-15] MEDS: hydrOXYzine PAMOATE 25 MG CAPSULE (FP) PO SCH ×2 (05:39→10:38)
[2022-05-15] MEDS ORDERED: diazePAM 5 MG TABLET PO ONE (06:00)
[2022-05-15] MEDS: PRENATAL VITAMINS W/ FOLIC ACID TABLET (FP) PO SCH (10:38)
[2022-05-15 13:40] VITALS: BP 105/51; PULSE 75; RESP 18; TEMP 96.9
== END 2022-05-15 13:50 | disposition home or self-care (01) | DRG 773 ==
LOC: YASAS 12:33 → Y3N 16:31
PROVIDERS: ADMIT Allergy & Immunology; ATTEND Surgery
PROC: HZ2ZZZZ Detoxification Services for Substance Abuse Treatment (ICD-10-PCS; principal; 2022-05-11)
DX: F11.23 Opioid dependence with withdrawal (principal); F10.230 Alcohol dependence with withdrawal, uncomplicated; F14.20 Cocaine dependence, uncomplicated; F13.20 Sedative, hypnotic or anxiolytic dependence, uncomplicated; F17.210 Nicotine dependence, cigarettes, uncomplicated; F31.9 Bipolar disorder, unspecified; F19.282 Other psychoactive substance dependence with psychoactive substance-induced sleep disorder; F19.24 Other psychoactive substance dependence with psychoactive substance-induced mood disorder; I10 Essential (primary) hypertension; J45.30 Mild persistent asthma, uncomplicated; K21.9 Gastro-esophageal reflux disease without esophagitis; R76.11 Nonspecific reaction to tuberculin skin test without active tuberculosis; Z86.69 Personal history of other diseases of the nervous system and sense organs; Z56.0 Unemployment, unspecified
CPT/HCPCS: 36415; 71046-TC-FY; 80053; 81003; 81025; 85027; 86780; 87811; C9803-CS; U0003; U0005